=== PATIENT | female | born 1935 | race Caucasian/White ===

== ENCOUNTER 2016-04-15 18:22 | Inpatient (IN) ==
[2016-04-15] MEDS ORDERED: FUROSEMIDE 40 MG/4 ML VIAL IV ONE ×2 (18:31→19:47)
--- NOTE | 2016-04-15 19:36 | Internal Med History&Physical ---
Medical - H&P: HPI Patient information: Note initiated : 04/15/16 at 7:33 pm Service Date, if different from initiated Date: [] Patient: Kenia Davis a 80 y/o F admitted on 04/15/16 for severe anemia. Chief Complaint: [] History of present illness: Ms. Davis is a 80 year old female who is a patient of Dr Shanks, follows with Dr mendez for recurrent Upper GI bleed. The patient has not been feeling well for approximately 4 weeks, she has been progressively getting short of breath over this time, and likely gaining weight. She was seen by Dr Shanks in his clinic yesterday. The note is not in yet, but what I gather by talking with the patient and Dr shanks, the patient worsening condition was concerning and therefore Dr Shanks ordered workup, cxr and labs. The patients CXR showed moderate CHF and the patients hb was 6.2. The patient was advised to go to the ER for blood transfusion? vs further management. The patient was seen in the ER and its seems that the ER was under the impression that she needs blood transfusion, they ordered 3 units of blood for the patient and the plan was to discharge her back home and follow up with her PCP. I received a Call today, in the evening from Dr Shanks who was concerned with regards to the plan of care and wanted me to evaluate the patient and initiate treatment/ GI evaluation for blood loss The patient has h/o Angiodysplasia and GAstritis likely from NSAID use (as per GI consult notes) Her last EGD was in 11/09 which showed erosive gastritis, (pt placed on misopristol) and colonoscopy was on 10/09 which revealed cecal angiodysplasia, s/p ablation. The patient also underwent a capsule enterscopy which was unrevealing. The patient has had multipe scopies for GI bleed and has been on IV iron therapy with oral iron therapy. As per the last GI note on 04/11/16, the patient is stable with Hb of 10 ( i did not see the lab result). The patient reported that her fatigue and sob was getting worse, but could nto give a specific time line to me. The patient has chronically black stools due to her iron use, she did not mention any bright red blood per rectum or abdominal pain. The patients PMH is also significant for Afib for which she is on coumadin with therapeutic INR complicating her GI bleed issues. Plus there is suspicion of use of NSAIDS by the GI team. Given her severe anemia, Shortness of breath, chf on xray and on clinical eval today patient was admitted to telemetery for observation. GI consult placed for oncall physician Dr Peraza. - Constitutional Constitutional: Present: weakness. Absent: chills, fever(s), headache(s) - EENT Eyes: Absent: blurry vision, change in vision Nose, mouth and throat: Absent: disequilibrium, dizziness - Cardiovascular Cardiovascular: Present: dyspnea on exertion, edema. Absent: chest pain, lightheadedness - Respiratory Respiratory: Present: wheezing. Absent: cough, dyspnea on exertion, excessive phlegm production - Gastrointestinal Gastrointestinal: Present: melena. Absent: abdominal pain, hematemesis, hematochezia, loose stools, nausea, vomiting - Genitourinary Genitourinary: Absent: hematuria, urinary frequency, urinary hesitancy - Musculoskeletal Musculoskeletal: Absent: arthralgias - Integumentary Integumentary: Absent: wounds, jaundice - Neurological Neurological: Absent: disequilibrium, focal weakness, syncope, vertigo - Psychiatric Psychiatric: Absent: anxiety, confusion - Endocrine Endocrine: Absent: polydipsia, polyphagia, polyuria - Hematologic/Lymphatic Hematologic/Lymphatic: Present: easy bleeding, easy bruising - Allergic/Immunologic Allergic/Immunologic: Absent: uticaria, wheezing Medical - H&P: PMH Medical history: Medical History Acute cor pulmonale (Acute) Anemia (Acute) Advanced diabetic maculopathy (Chronic) Anemia (Chronic) Angiodysplasia (Chronic) Ankle sprain (Chronic 11/08/12) Aortic valve stenosis (Chronic) Bronchitis (Chronic) CKD (chronic kidney disease) stage 3, GFR 30-59 ml/min (Chronic) Chronic atrial fibrillation (Chronic) Chronic kidney disease (Chronic) Chronic kidney disease, stage III (moderate) (Chronic) Colon adenoma (Chronic) Congestive heart failure (Chronic) Degenerative joint disease of right knee (Chronic) Dermatochalasis (Chronic) Dysphagia (Chronic) Edema (Chronic) Edema of lower extremity (Chronic) Encounter for wound care (Chronic) Fatigue (Chronic 03/21/12) Gastritis (Chronic) Gout (Chronic) H/O noncompliance with medical treatment, presenting hazards to health (Chronic) Hyperlipidemia (Chronic) Hypertension (Chronic) Hypothyroidism (Chronic) Iridocyclitis (Chronic) skilled nursing current use of anticoagulant (Chronic 04/11/13) Lower extremity edema (Chronic) Lupus (systemic lupus erythematosus) (Chronic) Metabolic syndrome (Chronic) Mitral valve insufficiency (Chronic) Morbid obesity (Chronic) Obstructive sleep apnea (Chronic) Osteoarthrosis, localized, primary, involving lower leg (Chronic) Osteoporosis (Chronic) 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 pylori) infection (Resolved) Infected abrasion of left leg (Resolved) Rectal Hemorrhage (Resolved) Surgical history: Past Surgical History History of breast surgery (Resolved) History of cataract surgery (Resolved) History of cholecystectomy (Resolved) History of colonoscopy (Resolved) History of esophagogastroduodenoscopy (Resolved) History of hysterectomy (Resolved) History of left knee replacement (Resolved) History of shoulder surgery (Resolved) History of toe surgery (Resolved) Pseudophakia (Resolved) Status post right knee replacement (Resolved) Family history: reviewed and not pertinent Pertinent family history: no h/o gi bleed no h/o pulmonary htn in family Social history: lives with spouse non smoker, ex smoker no etoh no recreational drugs. Medical - H&P: Meds Home Medications Medication Instructions Recorded Confirmed Type Vitamin B Complex 1 cap PO HS 09/24/14 04/15/16 History ferrous sulfate ER 325 mg (65 mg 325 mg PO BID cap 02/13/15 04/15/16 History iron) capsule,extended release sennosides 8.6 mg tablet 8.6 mg PO QDAY 08/07/15 04/15/16 History misoprostol 100 mcg tablet 100 mcg PO BID tab 12/18/15 04/15/16 History ascorbic acid (vitamin C) 500 mg 500 mg PO DAILY tab 12/29/15 04/15/16 History tablet magnesium oxide 400 mg capsule 400 mg PO BID cap 12/29/15 04/15/16 History Allergies Allergy/AdvReac Type Severity Reaction Status Date / Time quinidine Allergy Intermediate Palpitation Verified 04/14/16 14:48 s hydrocodone AdvReac Mild Itching Verified 04/14/16 14:48 Medical - H&P: Exam - Constitutional Vitals: Temp Pulse Resp BP Pulse Ox 98.2 F 67 26 H 115/68 95 04/15/16 19:00 04/15/16 19:00 04/15/16 19:00 04/15/16 19:00 04/15/16 19:00 General appearance: average body habitus, moderate distress, morbidly obese - Head Head exam: Present: atraumatic, normal inspection, normocephalic - Eye Eye exam: Present: PERRL. Absent: periorbital swelling, periorbital tenderness , scleral icterus - ENT ENT exam: Present: mucous membranes moist, normal external ear exam - Neck Neck exam: Present: normal inspection - Expanded Neck Exam Neck exam: Absent: tracheal deviation - Respiratory Additional comments: air entry equal on both sides bibasilar crackles jose luis prolonged exp sounds, jose luis wheezing noted. - Cardiovascular Cardiovascular exam: Present: irregular rhythm, +S1, +S2, +S4, systolic murmur ( aortic region) - GI/Abdominal GI/Abdominal exam: Present: normal bowel sounds, soft - Extremities Exam Extremities exam: Present: pedal edema Additional comments: edema on all dependent region upto pelvis. - Neurological Exam Neurological exam: Present: alert, CN II-XII intact, oriented X3. Absent: motor sensory deficit - Psychiatric Psychiatric exam: Absent: agitated, anxious - Skin Skin exam: Present: intact. Absent: rash, urticaria Medical - H&P: Reslt - Labs Labs: Hb reviewed echo done in past, colonoscopy egd x ray chest reviwed. Medical - H&P: A/P (1) Acute cor pulmonale Current visit: No Status: Acute (2) Anemia Current visit: No Status: Acute (3) Angiodysplasia Problem details: 08/07/2012 Tony 09/25/2015 Tony Current visit: No Status: Chronic (4) Atrial fibrillation Current visit: No Status: Chronic (5) Chronic kidney disease, stage III (moderate) Current visit: No Status: Chronic (6) Congestive heart failure Current visit: No Status: Chronic (7) Obstructive sleep apnea Current visit: No Status: Chronic (8) Type 2 diabetes mellitus Current visit: No Status: Chronic (9) Moderate to severe pulmonary hypertension Current visit: Yes Status: Acute - Narrative A/P Narrative: This is a very complex 80 yr female, who is unfortunately having GI bleed due to angiodysplasia as well as has Afib with high risk of stroke. The patient also has congestive heart failure, with acute cor pulmonale as the predominant type (right side heart failure). The patient also has severe pulmoanry hypertension. Acute blood loss anemia- Transfused 3 units of blood by the ER, check cbc again. GI bleed- Due to angiodysplsia vs Gastritis for now, As per the last GI plan, patient needs EGD with push enteroscopy. I have consulted GI for further evaluation, IV bid ppi for now, continue misoprisotol CHF- noted on X ray, appears biventricular on x ray, hwoever she has predominant right sided heart failure, due to severe pulmonary hypertension. IV lasix for now and monitor closely, Al to be placed. strickt I/O monitoring, on tele. pt does not endorse chest pains. Pulmonary hypertension- Multifactorial, likely combination fo type 2 and type 3 pulmonary HTN. Her PUlmn HTN is ssevere and she is significantly volume overloaded as per the last echo done mid last year, SHe will need significant diuresis, as much as her kidneys allow. She has beeb non compliant with her ODN which can also exacerbate her pulmonary HTN. ATrial fibrillation- HR controlled with digoxin, the patient has not had a stroke, but has had significant recurrent GI bleed, at thsi time she is at risk of significnat GI bleed as well as stroke, Based on the available evidence / her CADSVASC score shows her to have a 9.7% chance of having a CVA. However her HASBLED score shows her a 8.9% chance of major bleed, and the Hemorrhage score shows her having a 12.3% chance of major bleed. The patient seems to be in a tough spot, but based on these calculators the patients risk profile seems to be similar without or with Coumadin. The patient may benefit by talking with her medical laboratory technicians on alternative agents for her stroke. She may be a candidate for left atrial appendage occlusion device. Code status - Full code Diet- Cardiac- Diabetic diet
[2016-04-15] MEDS ORDERED: ONDANSETRON 4 MG/2 ML VIAL IV PRN (19:47)
[2016-04-15] MEDS ORDERED: DEXTROSE 50% 50 ML VIAL IV PRN (19:47)
[2016-04-15] MEDS ORDERED: ACETAMINOPHEN 325 MG TABLET PO PRN (19:47)
[2016-04-15] MEDS ORDERED: NALOXONE HCL 0.4 MG/ML VIAL IV PRN (19:47)
[2016-04-15 21:13] LABS: Basophils # (Auto) 0 K/mcL (0.0-0.3); Basophils % (Auto) 0.3 % (0.0-2.0); Eosinophils # (Auto) 0.4 K/mcL (0.0-0.7); Eosinophils % (Auto) 5.3 % (0.0-7.0); Granulocytes % (Auto) 83.8 % (38.0-78.0); Lymphocytes # (Auto) 0.4 K/mcL (1.5-4.8); Lymphocytes % (Auto) 4.8 % (15.5-49.0); Mean Corpuscular HGB Conc 31.7 g/dL (31.0-36.0); Mean Corpuscular Hemoglobin 28.2 pg (26.0-34.0); Monocytes # (Auto) 0.5 K/mcL (0.1-0.9); Monocytes % (Auto) 5.8 % (1.0-9.0); Platelet Count 221 K/mcL (140-440); RBC 2.82 M/mcL (4.00-5.20); Red Cell Distribution Width 21.2 % (11.5-14.5)
[2016-04-15 21:55] LABS: ALT/SGPT 23 U/l (0-40); Albumin 3.9 gm/dL (3.2-5.2); Albumin/Globulin Ratio 1.4 (1.0-2.3); Alkaline Phosphatase 94 U/L (39-117); Bilirubin,Direct 0.2 mg/dL (0.0-0.3); Blood Urea Nitrogen 63 mg/dl (8-23); Gamma Glutamyl Transpeptidase 52 U/L (5-36); Magnesium 2.9 mg/dL (1.6-2.5); Phosphorous 4.2 mg/dL (2.7-4.5); Uric Acid 5.2 mg/dL (2.5-8.0)
[2016-04-15] MEDS: MAGNESIUM OXIDE 400 MG TABLET PO SCH (22:42)
[2016-04-15] MEDS: SIMVASTATIN 20 MG TABLET PO SCH (22:42)
[2016-04-15] MEDS: INSULIN LISPRO 1 UNIT/0.01 ML UNIT SQ SCH (22:42)
[2016-04-15] MEDS: PANTOPRAZOLE 40 MG VIAL IV SCH (22:42)
[2016-04-15] MEDS: INSULIN GLARGINE, HUMAN 1 UNIT/0.01 ML SQ SCH (22:43)
[2016-04-15] MEDS ORDERED: PANTOPRAZOLE 40 MG VIAL IV ONE (22:45)
[2016-04-16] MEDS: IPRATROPIUM/ALBUTEROL 3 ML AMPUL.NEB NEB SCH ×4 (00:19→20:16)
[2016-04-16] MEDS ORDERED: FUROSEMIDE 40 MG/4 ML VIAL IV ONE (01:00)
[2016-04-16 01:10] LABS: Appearance,Urine CLEAR; Bacteria,Urine 0 /hpf (0); Bilirubin,Urine NEG (NEG); Color,Urine STRAW; Glucose,Urine (UA) NEGATIVE (NEG); Leukocyte Esterase,Urine NEG /uL (NEG); Mucus,Urine FEW /hpf (0); Nitrate,Urine NEG (NEG); Protein,Urine NEG (NEG); Specific Gravity,Urine 1.009 (1.000-1.035); Urine Blood NEG mg/dL (<0.03); Urine Hyaline Cast 1 /lpf (0-2); Urine RBC < 1 /hpf (0-1); Urine Squamous Epithelial Cell 0 /hpf (0-4); Urine WBC 1 /hpf (0-4); Urobilinogen,Urine NEG (NEG)
--- NOTE | 2016-04-16 07:27 | XRay Report ---
CLINICAL INFORMATION: CHF COMPARISON: 04/14/2016 FINDINGS: The heart is markedly enlarged - unchanged. Mediastinum is unremarkable. Pulmonary vessels have increased in caliber and now markedly congested. There is marked bronchovascular edema which has also worsened. There is mild left basilar airspace disease - likely atelectasis. Small bilateral pleural effusions noted IMPRESSION: Severe CHF - worsening. Interpreted and Authenticated by: Ray Virk 04/16/16
[2016-04-16] MEDS: LEVOTHYROXINE 150 MCG TABLET PO SCH (07:30)
[2016-04-16] MEDS: PANTOPRAZOLE 40 MG VIAL IV SCH ×2 (07:30→18:06)
[2016-04-16] MEDS: INSULIN LISPRO 1 UNIT/0.01 ML UNIT SQ SCH ×5 (07:53→21:35)
[2016-04-16] MEDS: FUROSEMIDE 40 MG/4 ML VIAL IV SCH ×2 (07:57→18:41)
[2016-04-16] MEDS: MISOPROSTOL 100 MCG TABLET PO SCH ×2 (08:00→18:12)
[2016-04-16] MEDS: POTASSIUM CHLORIDE 20 MEQ/15 ML ML PO SCH ×2 (08:13→18:14)
[2016-04-16] MEDS: ALLOPURINOL 300 MG TABLET PO SCH (08:13)
[2016-04-16] MEDS: MAGNESIUM OXIDE 400 MG TABLET PO SCH ×2 (08:13→21:36)
[2016-04-16] MEDS: LEVOTHYROXINE 100 MCG TABLET PO SCH (08:43)
[2016-04-16 08:49] LABS: Basophils # (Auto) 0 K/mcL (0.0-0.3); Basophils % (Auto) 0.2 % (0.0-2.0); Eosinophils # (Auto) 0.4 K/mcL (0.0-0.7); Eosinophils % (Auto) 4.9 % (0.0-7.0); Granulocytes % (Auto) 82.5 % (38.0-78.0); Lymphocytes # (Auto) 0.4 K/mcL (1.5-4.8); Lymphocytes % (Auto) 4.7 % (15.5-49.0); Mean Cell Volume 88.8 fL (80.0-100.0); Mean Corpuscular HGB Conc 31.2 g/dL (31.0-36.0); Mean Corpuscular Hemoglobin 27.7 pg (26.0-34.0); Monocytes # (Auto) 0.6 K/mcL (0.1-0.9); Monocytes % (Auto) 7.7 % (1.0-9.0); Platelet Count 205 K/mcL (140-440); RBC 2.86 M/mcL (4.00-5.20); Red Cell Distribution Width 21.3 % (11.5-14.5)
[2016-04-16 09:06] LABS: ALT/SGPT 20 U/l (0-40); Albumin/Globulin Ratio 1.5 (1.0-2.3); Alkaline Phosphatase 92 U/L (39-117); Bilirubin,Direct < 0.2 mg/dL (0.0-0.3); Blood Urea Nitrogen 63 mg/dl (8-23); Gamma Glutamyl Transpeptidase 51 U/L (5-36); Magnesium 2.8 mg/dL (1.6-2.5); Phosphorous 4.2 mg/dL (2.7-4.5); Uric Acid 5.5 mg/dL (2.5-8.0)
[2016-04-16] MEDS ORDERED: 0.9 % SODIUM CHLORIDE 250 ML IV SCH (12:00)
--- NOTE | 2016-04-16 12:30 | Internal Med Progress Note ---
Medical - PN: Subj Patient information: Note initiated : 04/16/16 at 12:22 pm Service Date, if different from initiated Date: [] Patient: Kenia Davis 80 y/o F admitted on 04/15/16 for severe anemia. Chief Complaint: [] Interval history: The patient seen examined, by the bed side The patient slept ok, has no acute concerns, denies any new complaints breathing is much better, she has a rasheed with adequate drainage. The patients hb reviewed, it is an inappropriate rise, Hb is only 7.9 after 3 units of blood. Will transfuse 1 additional unit today to keep h/h > 8 given h/ o heart failure and active diuresis. NPO this AM for GI eval and endoscopy which will happen likely around 3.30 Pertinent ROS: Denies headache, dizziness Denies chest pain, palpitations Denies cough or shortness of breath Denies abdominal pain, nausea or vomiting. - Constitutional Vitals: Vital Signs Temp Pulse Resp BP Pulse Ox 97.0 F L 58 L 16 112/64 91 04/16/16 10:57 04/16/16 07:58 04/16/16 10:57 04/16/16 10:57 04/16/16 10:57 Period Temp Pulse Resp BP Sys/Shepard Pulse Ox Last 24 Hr 97.0 F-98.2 F 58-71 16-26 96-128/46-68 91-100 Intake and Output 04/15/16 04/16/16 04/16/16 21:59 05:59 13:59 Intake Total 350 / 350 620 / 620 Output Total 501 / 501 1300 / 1300 650 / 650 Balance -501 / -501 -950 / -950 -30 / -30 Weight 268 lb Intake & Output: Intake & Output 04/15/16 04/16/16 04/16/16 21:59 05:59 13:59 Intake Total 350 / 350 620 / 620 Output Total 501 / 501 1300 / 1300 650 / 650 Balance -501 / -501 -950 / -950 -30 / -30 Weight 268 lb Intake: Oral 350 / 350 620 / 620 Output: Urine Catheter Amount 1300 / 1300 650 / 650 Void Amount 500 / 500 # of times incontinent of 1 / 1 urine Other: Meal HS snack Breakfast Percent of Meal Consumed 100% 100% Feeding Ability Assist with Tray Set Up Assist with Tray Set Up # Voids 1 # Bowel Movements 1 Exam: Constitutional; Afebrile, cooperative, alert, not in distress. Eyes- No icterus, Pupils equal, reactive, No periorbital swelling Ears- Ext ear normal, hearing normal to conversation. Neck- Midline trachea, supple Respiratory system: Air Entry equal on both sides,, mild exp wheezing, CVS- Rate rhythm regular, S1,S2 heard, no gallop, no rub. Abdomen- Soft nontender abdomen, no organomegaly, no tenderness, no guarding or rigidity, NURSING HOME ADMISSIONS DIRECTOR- AOOx3, moving all extremities, no focal deficit noted. Medical - PN: Obj Da - Labs CBC & Chem 7: 04/16/16 07:53 04/16/16 07:53 Labs: Abnormal Lab Results 04/16/16 04/16/16 04/15/16 07:53 07:53 20:35 RBC 2.86 L Hgb 7.9 L Hct 25.4 L RDW 21.3 H MPV Gran % 82.5 H Lymph % (Auto) 4.7 L Lymph # 0.4 L PT INR Carbon Dioxide 32 H BUN 63 H Creatinine 1.7 H Glucose 126 H Magnesium 2.8 H GGT 51 H NT-Pro-B Natriuret Pep 624.0 H 04/15/16 04/15/16 04/15/16 20:35 20:35 20:35 RBC 2.82 L Hgb 7.9 L Hct 25.1 L RDW 21.2 H MPV 7.3 L Gran % 83.8 H Lymph % (Auto) 4.8 L Lymph # 0.4 L PT 29.9 H INR 2.7 H Carbon Dioxide BUN 63 H Creatinine 1.6 H Glucose 157 H Magnesium 2.9 H GGT 52 H NT-Pro-B Natriuret Pep Meds: Medications Acetaminophen (Tylenol) 650 mg PO Q6HP PRN PRN Reason: PAIN/FEVER > 101 Albuterol/Ipratropium (Duoneb) 3 ml NEB Q6HRT ON LICENSE OF [facility] Last Admin: 04/16/16 07:56 Dose: 3 ml Allopurinol (Zylopriim) 300 mg PO DAILY ON LICENSE OF [facility] Last Admin: 04/16/16 08:13 Dose: 300 mg Dextrose (Dextrose 50%) 0 ml IV UD PRN PRN Reason: Hypoglycemia Diagnostic Test (Pha) (Accu-Chek) 1 each FS ACHS ON LICENSE OF [facility] Last Admin: 04/16/16 07:50 Dose: 1 each Digoxin (Lanoxin) 62.5 mcg PO DAILY@1400 [place] Furosemide (Lasix) 40 mg IV BIDD ON LICENSE OF [facility] Last Admin: 04/16/16 07:57 Dose: 40 mg Sodium Chloride (Sodium Chloride 0.9%) 250 mls @ 20 mls/hr IV .[id number] ON LICENSE OF [facility] Stop: 04/17/16 00:29 Insulin Glargine (Lantus) 40 unit SQ HS ON LICENSE OF [facility] Last Admin: 04/15/16 22:43 Dose: 40 unit Insulin Human Lispro (Humalog) 0 unit SQ [facility] PRN Reason: Protocol Last Admin: 04/16/16 07:53 Dose: 2 unit Levothyroxine Sodium (Synthroid) 100 mcg PO ACB ON LICENSE OF [facility] Last Admin: 04/16/16 08:43 Dose: 100 mcg Levothyroxine Sodium (Synthroid) 150 mcg PO QAMAC ON LICENSE OF [facility] Last Admin: 04/16/16 07:30 Dose: 150 mcg Magnesium Oxide (Magnesium Oxide) 400 mg PO BID ON LICENSE OF [facility] Last Admin: 04/16/16 08:13 Dose: 400 mg Misoprostol (Cytotec) 100 mcg PO BIDCC ON LICENSE OF [facility] Last Admin: 04/16/16 08:00 Dose: 100 mcg Naloxone HCl (Narcan) 0.1 mg IV Q2MIN PRN PRN Reason: Opiate Reversal Ondansetron HCl (Zofran) 4 mg IV Q4HP PRN PRN Reason: Nausea And Vomiting Pantoprazole Sodium (Protonix) 40 mg IV BIDAC ON LICENSE OF [facility] Last Admin: 04/16/16 07:30 Dose: 40 mg Potassium Chloride (Potassium Chloride) 15 meq PO BIDCC ON LICENSE OF [facility] Last Admin: 04/16/16 08:13 Dose: 15 meq Simvastatin (Zocor) 20 mg PO HS ON LICENSE OF [facility] Last Admin: 04/15/16 22:42 Dose: 20 mg Medical - PN: A/P - Time Spent With Patient Total time spent is greater than 50% in coordination of care (as documented) at patient's floor/unit and/or counseling patient: (1) Acute cor pulmonale Status: Acute Current Visit: No (2) Anemia Status: Acute Current Visit: No (3) Angiodysplasia Problem details: 08/07/2012 Tony 09/25/2015 Tony Status: Chronic Current Visit: No (4) Atrial fibrillation Status: Chronic Current Visit: No (5) Chronic kidney disease, stage III (moderate) Status: Chronic Current Visit: No (6) Congestive heart failure Status: Chronic Current Visit: No (7) Obstructive sleep apnea Status: Chronic Current Visit: No (8) Type 2 diabetes mellitus Status: Chronic Current Visit: No (9) Moderate to severe pulmonary hypertension Status: Acute Current Visit: Yes - Narrative A/P Narrative: Anemia_ Await EGD, transfuse 1 more unit. CHF/ Acute Cor pulmonale- IV lasix bid, replace electrolytes, as needed, continue to monitor I/O Afib, INR therapeutic, will hold coumadin for now, given no overt GI bleed, no need to reverse the anticoagulation. I discussed with the patient need for discussion with her ecommerce manager regarding alternative treatment options for afib/ CVA reduction if possible DVT - INR therapeutic Diet NPO for now, otherwise diabetic diet. CKD creat is 1.7, which is around baseline, monitor daily
[2016-04-16] MEDS ORDERED: PROPOFOL 200 MG/20 ML VIAL IV SCH (13:00)
[2016-04-16] MEDS ORDERED: MIDAZOLAM 2 MG/2 ML VIAL IV SCH (13:00)
[2016-04-16] MEDS ORDERED: PROPOFOL 20 ML IV ONE (15:28)
[2016-04-16] MEDS: DIGOXIN 125 MCG TABLET PO SCH (17:10)
[2016-04-16] MEDS: INSULIN GLARGINE, HUMAN 1 UNIT/0.01 ML SQ SCH (21:35)
[2016-04-16] MEDS: SIMVASTATIN 20 MG TABLET PO SCH (21:36)
[2016-04-17] MEDS: IPRATROPIUM/ALBUTEROL 3 ML AMPUL.NEB NEB SCH ×4 (00:23→19:18)
[2016-04-17 05:05] LABS: Basophils # (Auto) 0 K/mcL (0.0-0.3); Basophils % (Auto) 0.2 % (0.0-2.0); Eosinophils # (Auto) 0.3 K/mcL (0.0-0.7); Eosinophils % (Auto) 4.5 % (0.0-7.0); Granulocytes % (Auto) 83.3 % (38.0-78.0); Lymphocytes # (Auto) 0.3 K/mcL (1.5-4.8); Lymphocytes % (Auto) 4.8 % (15.5-49.0); Mean Corpuscular HGB Conc 31.7 g/dL (31.0-36.0); Mean Corpuscular Hemoglobin 28.2 pg (26.0-34.0); Monocytes # (Auto) 0.5 K/mcL (0.1-0.9); Monocytes % (Auto) 7.2 % (1.0-9.0); Platelet Count 181 K/mcL (140-440); RBC 2.87 M/mcL (4.00-5.20); Red Cell Distribution Width 20.3 % (11.5-14.5)
[2016-04-17 05:21] LABS: ALT/SGPT 18 U/l (0-40); Albumin 3.5 gm/dL (3.2-5.2); Albumin/Globulin Ratio 1.2 (1.0-2.3); Alkaline Phosphatase 88 U/L (39-117); Bilirubin,Direct < 0.2 mg/dL (0.0-0.3); Blood Urea Nitrogen 62 mg/dl (8-23); Gamma Glutamyl Transpeptidase 47 U/L (5-36); Magnesium 2.6 mg/dL (1.6-2.5); Phosphorous 4.6 mg/dL (2.7-4.5); Uric Acid 5.7 mg/dL (2.5-8.0)
[2016-04-17] MEDS: INSULIN LISPRO 1 UNIT/0.01 ML UNIT SQ SCH ×4 (09:16→21:47)
[2016-04-17] MEDS: POTASSIUM CHLORIDE 20 MEQ/15 ML ML PO SCH ×2 (09:16→17:46)
[2016-04-17] MEDS: PANTOPRAZOLE 40 MG VIAL IV SCH ×2 (09:17→18:01)
[2016-04-17] MEDS: FUROSEMIDE 40 MG/4 ML VIAL IV SCH ×2 (09:17→16:43)
[2016-04-17] MEDS: LEVOTHYROXINE 150 MCG TABLET PO SCH (09:18)
[2016-04-17] MEDS: MISOPROSTOL 100 MCG TABLET PO SCH ×2 (09:18→17:44)
[2016-04-17] MEDS: MAGNESIUM OXIDE 400 MG TABLET PO SCH ×2 (09:19→21:46)
[2016-04-17] MEDS: LEVOTHYROXINE 100 MCG TABLET PO SCH (09:19)
[2016-04-17] MEDS: ALLOPURINOL 300 MG TABLET PO SCH (09:20)
[2016-04-17] MEDS ORDERED: PHYTONADIONE 5 MG TABLET PO ONE (11:49)
--- NOTE | 2016-04-17 11:50 | Internal Med Progress Note ---
Medical - PN: Subj Patient information: Note initiated : 04/17/16 at 11:47 am Service Date, if different from initiated Date: [] Patient: Kenia Davis 80 y/o F admitted on 04/15/16 for severe anemia. Chief Complaint: [] Interval history: The patient seen examined this AM, Sitting comfortably in her bed She is s/p EGD scopy yesterday, few Angiodysplasia noted in the stomach. The patient received 1 additional unit of blood her Hb this AM Was 8.1, and then 8.0. The patient does not report any significant bleeding per recturm, no new concerns. She is otherwise doing well, with at bedside. Pertinent ROS: Denies headache, dizziness Denies chest pain, palpitations Denies cough or shortness of breath Denies abdominal pain, nausea or vomiting. - Constitutional Vitals: Vital Signs Temp Pulse Resp BP Pulse Ox 98.8 F 64 16 109/53 97 04/17/16 04:11 04/17/16 07:44 04/17/16 07:44 04/17/16 04:11 04/17/16 07:44 Period Temp Pulse Resp BP Sys/Shepard Pulse Ox Last 24 Hr 97.8 F-98.8 F 56-75 16-20 94-122/49-63 91-97 Intake and Output 04/16/16 04/17/16 04/17/16 21:59 05:59 13:59 Intake Total 360 / 360 550 / 550 Output Total 1850 / 1850 1650 / 1650 Balance -1490 / -1490 -1100 / -1100 Weight 261 lb Intake & Output: Intake & Output 04/16/16 04/17/16 04/17/16 21:59 05:59 13:59 Intake Total 360 / 360 550 / 550 Output Total 1850 / 1850 1650 / 1650 Balance -1490 / -1490 -1100 / -1100 Weight 261 lb Intake: Oral 360 / 360 550 / 550 Output: Urine Catheter Amount 1850 / 1850 1650 / 1650 Other: Meal Dinner HS snack Percent of Meal Consumed 100% 100% Feeding Ability Assist with Tray Set Up # Bowel Movements 0 Exam: Constitutional; Afebrile, cooperative, alert, not in distress. Morbid obesity Eyes- No icterus, Pupils equal, reactive, No periorbital swelling Ears- Ext ear normal, hearing normal to conversation. Neck- Midline trachea, supple Respiratory system: Air Entry equal on both sides, No crackles or wheezing, no rhonchi. CVS- irreuglarily irreuglar rate, S1,S2 heard, no gallop, no rub. jose luis edema, venous statis Abdomen- Soft nontender abdomen, no organomegaly, no tenderness, no guarding or rigidity, DIRECTOR OF LABOR RELATIONS- AOOx3, moving all extremities, no focal deficit noted. Medical - PN: Obj Da - Labs CBC & Chem 7: 04/17/16 08:20 04/17/16 03:50 Labs: Abnormal Lab Results 04/17/16 04/17/16 04/17/16 08:20 08:20 03:50 RBC Hgb 8.0 L Hct 26.1 L RDW MPV Gran % Lymph % (Auto) Lymph # PT 28.6 H INR 2.6 H Chloride 95 L Carbon Dioxide 31 H BUN 62 H Creatinine 1.8 H Glucose 167 H Phosphorus 4.6 H Magnesium 2.6 H GGT 47 H NT-Pro-B Natriuret Pep 04/17/16 04/16/16 04/16/16 03:50 20:32 07:53 RBC 2.87 L Hgb 8.1 L 8.6 L Hct 25.6 L 27.1 L RDW 20.3 H MPV Gran % 83.3 H Lymph % (Auto) 4.8 L Lymph # 0.3 L PT INR Chloride Carbon Dioxide 32 H BUN 63 H Creatinine 1.7 H Glucose 126 H Phosphorus Magnesium 2.8 H GGT 51 H NT-Pro-B Natriuret Pep 04/16/16 04/15/16 04/15/16 07:53 20:35 20:35 RBC 2.86 L Hgb 7.9 L Hct 25.4 L RDW 21.3 H MPV Gran % 82.5 H Lymph % (Auto) 4.7 L Lymph # 0.4 L PT 29.9 H INR 2.7 H Chloride Carbon Dioxide BUN Creatinine Glucose Phosphorus Magnesium GGT NT-Pro-B Natriuret Pep 624.0 H 04/15/16 04/15/16 20:35 20:35 RBC 2.82 L Hgb 7.9 L Hct 25.1 L RDW 21.2 H MPV 7.3 L Gran % 83.8 H Lymph % (Auto) 4.8 L Lymph # 0.4 L PT INR Chloride Carbon Dioxide BUN 63 H Creatinine 1.6 H Glucose 157 H Phosphorus Magnesium 2.9 H GGT 52 H NT-Pro-B Natriuret Pep Meds: Medications Acetaminophen (Tylenol) 650 mg PO Q6HP PRN PRN Reason: PAIN/FEVER > 101 Albuterol/Ipratropium (Duoneb) 3 ml NEB Q6HRT [facility] Last Admin: 04/17/16 07:36 Dose: 3 ml Allopurinol (Zylopriim) 300 mg PO DAILY [facility] Last Admin: 04/17/16 09:20 Dose: 300 mg Dextrose (Dextrose 50%) 0 ml IV UD PRN PRN Reason: Hypoglycemia Diagnostic Test (Pha) (Accu-Chek) 1 each FS ACHS [facility] Last Admin: 04/17/16 11:46 Dose: 1 each Digoxin (Lanoxin) 62.5 mcg PO DAILY@1400 [facility] Last Admin: 04/16/16 17:10 Dose: 62.5 mcg Furosemide (Lasix) 40 mg IV BIDD [facility] Last Admin: 04/17/16 09:17 Dose: 40 mg Insulin Glargine (Lantus) 40 unit SQ HS [facility] Last Admin: 04/16/16 21:35 Dose: 40 unit Insulin Human Lispro (Humalog) 0 unit SQ [facility] PRN Reason: Protocol Last Admin: 04/17/16 11:47 Dose: 6 unit Levothyroxine Sodium (Synthroid) 100 mcg PO ACB [facility] Last Admin: 04/17/16 09:19 Dose: 100 mcg Levothyroxine Sodium (Synthroid) 150 mcg PO QAMAC [facility] Last Admin: 04/17/16 09:18 Dose: 150 mcg Magnesium Oxide (Magnesium Oxide) 400 mg PO BID [facility] Last Admin: 04/17/16 09:19 Dose: 400 mg Misoprostol (Cytotec) 100 mcg PO BIDCC [facility] Last Admin: 04/17/16 09:18 Dose: 100 mcg Naloxone HCl (Narcan) 0.1 mg IV Q2MIN PRN PRN Reason: Opiate Reversal Ondansetron HCl (Zofran) 4 mg IV Q4HP PRN PRN Reason: Nausea And Vomiting Pantoprazole Sodium (Protonix) 40 mg IV BIDAC [facility] Last Admin: 04/17/16 09:17 Dose: 40 mg Potassium Chloride (Potassium Chloride) 15 meq PO BIDCC [facility] Last Admin: 04/17/16 09:16 Dose: 15 meq Simvastatin (Zocor) 20 mg PO HS [facility] Last Admin: 04/16/16 21:36 Dose: 20 mg Medical - PN: A/P - Time Spent With Patient Total time spent is greater than 50% in coordination of care (as documented) at patient's floor/unit and/or counseling patient: (1) Acute cor pulmonale Status: Acute Current Visit: No (2) Anemia Status: Acute Current Visit: No (3) Angiodysplasia Problem details: 08/07/2012 Tony 09/25/2015 Tony Status: Chronic Current Visit: No (4) Atrial fibrillation Status: Chronic Current Visit: No (5) Chronic kidney disease, stage III (moderate) Status: Chronic Current Visit: No (6) Congestive heart failure Status: Chronic Current Visit: No (7) Type 2 diabetes mellitus Status: Chronic Current Visit: No (8) Moderate to severe pulmonary hypertension Status: Acute Current Visit: Yes - Narrative A/P Narrative: The patient is doing well, no acute bleed, but her hemoglobin is still on the low end, she came in with 6.2, and after 4 units she is only at 8.0, no active bleed noted, she is s/p EGD scopy GI bleed: Due to angiodysplasia, GI consult not in yet, but I reviewed the EGD paper report, where in he mentions that patient will need push enteroscopy as outpatient. If patient however continues to bleed or Hb not improve, will see if we need to transfer the patient to [facility] for EGD with push enteroscopy and ablation of lesion. Anemia: Monitor h/h transfuse to keep hb > 8.0. on IV ppi, and misopristol Atrial Fib: On Coumadin with therapeutic INR, the patient is in a difficult position, but given that her hb has not responded as well to just transfusion, I will reverse her anticoagulation now to see if we can stop the bleed. I discussed with her the increased risks of stroke, but also increased risk of GI bleed. For now the plan is to hold Coumadin, give one dose of Vit K and monitor her bleed, ok to use low dose aspirin once INR is subtherapeutic. She can resume her Coumadin therapy as outpatient once her bleeding has stopped, and vessels have had time to heal. The patient again should talk with her c python developer regarding an evaluation for watchman device CHF/ Cor pulmonale: IV lasix for now, creat is 1.7, gradually trending up, she is neg 4 L at this time, he breathing is much better. Hold lasix if creatinie worsens. It seems she is fluid overloaded predominantly from right heart failure. Severe pulmonary HTN on the Echo, diuresis should help, she has type 2 and type 3 mixed picture. Compliace with cpap will help. DVT on coumadin with therapeutic INR. Diet Diabetic diet.
[2016-04-17] MEDS: DIGOXIN 125 MCG TABLET PO SCH (14:42)
[2016-04-17] MEDS: SIMVASTATIN 20 MG TABLET PO SCH (21:46)
[2016-04-17] MEDS: INSULIN GLARGINE, HUMAN 1 UNIT/0.01 ML SQ SCH (21:47)
[2016-04-18] MEDS: IPRATROPIUM/ALBUTEROL 3 ML AMPUL.NEB NEB SCH ×3 (00:17→13:52)
[2016-04-18 05:29] LABS: Basophils # (Auto) 0 K/mcL (0.0-0.3); Basophils % (Auto) 0.2 % (0.0-2.0); Eosinophils # (Auto) 0.3 K/mcL (0.0-0.7); Eosinophils % (Auto) 4.5 % (0.0-7.0); Granulocytes % (Auto) 84.1 % (38.0-78.0); Lymphocytes # (Auto) 0.3 K/mcL (1.5-4.8); Mean Cell Volume 89.5 fL (80.0-100.0); Mean Corpuscular HGB Conc 31.3 g/dL (31.0-36.0); Monocytes # (Auto) 0.5 K/mcL (0.1-0.9); Monocytes % (Auto) 7.2 % (1.0-9.0); Platelet Count 174 K/mcL (140-440); RBC 2.86 M/mcL (4.00-5.20); Red Cell Distribution Width 20.4 % (11.5-14.5)
[2016-04-18 06:07] LABS: ALT/SGPT 18 U/l (0-40); Albumin 3.6 gm/dL (3.2-5.2); Albumin/Globulin Ratio 1.3 (1.0-2.3); Alkaline Phosphatase 95 U/L (39-117); Bilirubin,Direct < 0.2 mg/dL (0.0-0.3); Blood Urea Nitrogen 64 mg/dl (8-23); Gamma Glutamyl Transpeptidase 49 U/L (5-36); Magnesium 2.7 mg/dL (1.6-2.5); Uric Acid 5.9 mg/dL (2.5-8.0)
[2016-04-18] MEDS: POTASSIUM CHLORIDE 20 MEQ/15 ML ML PO SCH (08:00)
[2016-04-18] MEDS: MISOPROSTOL 100 MCG TABLET PO SCH (08:01)
[2016-04-18] MEDS: LEVOTHYROXINE 150 MCG TABLET PO SCH (08:01)
[2016-04-18] MEDS: LEVOTHYROXINE 100 MCG TABLET PO SCH (08:02)
[2016-04-18] MEDS: PANTOPRAZOLE 40 MG VIAL IV SCH (08:02)
[2016-04-18] MEDS: FUROSEMIDE 40 MG/4 ML VIAL IV SCH (08:02)
[2016-04-18] MEDS: INSULIN LISPRO 1 UNIT/0.01 ML UNIT SQ SCH ×2 (08:02→12:01)
--- NOTE | 2016-04-18 09:09 | Operative Note ---
DATE OF OPERATION: 04/16/2016 PREPROCEDURE DIAGNOSIS: Upper GI bleed possibly secondary to angiodysplasia in jejunum. POSTPROCEDURE DIAGNOSES: 1. Gastrointestinal bleeding, source uncertain 2. Questionable angiodysplasia of stomach. PROCEDURE: Small bowel enteroscopy with ablation of lesion. INSTRUMENT USED: Olympus ROSA [id number] and Olympus ROSA CF H180AL colonoscope. SPECIMENS OBTAINED: None. INDICATIONS FOR PROCEDURE: The patient is a 80-year-old lady referred to me by Dr. Howard. The patient's primary care physician is Dr. Walls. Per verbal report, I believe the patient has seen STEVEN Ruelas in Gastroenterology. The patient I believe has had recurrent problems with bleeding. The patient states she has had a PillCam done and either there was no pathology or there was questionable angiodysplasia in the upper portion. Recommendations were that if she bleeds again she have a deep enteroscopy. She has presented to the hospital with significant anemia and is getting a blood transfusion. I believe she also gets IV iron supplements from time to time. With the, I believe oral iron that she takes the stool is dark; however, her description does not sound like melena. Endoscopy is indicated because of the anemia and the belief that she is bleeding from the upper gastrointestinal tract. INFORMED CONSENT: The procedure was reviewed with the patient. The patient had no further questions and accepts the risks and benefits thereof. One of the risks that were discussed included . Additional risks that were also discussed included bleeding, reaction to medication, possible perforation and possible need for surgery. IV MEDICATIONS USED: Versed 2 and propofol 100. FINDINGS: ESOPHAGUS: Proximal, mid and distal esophagus appeared normal. EG junction was at 45 cm. STOMACH: Cardia, fundus and body normal. Antrum: There were several tiny questionable angiodysplasia. Occasionally, there would be bleeding with trauma. These were treated with cautery. No biopsies were obtained. PYLORUS: Normal. DUODENUM: This appeared normal. As there was no definitive bleeding site found the EGD scope was taken out and the colonoscope was advanced to the hob which is 165 cm. No abnormalities were found in the jejunum. The papilla appeared satisfactory. Once again, no angiodysplasia or other bleeding sites were found in the visualized portion of the jejunum. RECOMMENDATIONS: I believe it would be worthwhile to seriously consider having the patient see Dr. Guadarrama in [place] for deep enteroscopy, single or double balloon enteroscopy. If for some reason the patient has not had a PillCam study done this may be helpful but she stated she has had one done. CRD:[id number] Job ID: [id number] Doc ID: [id number] Ross Walls MD
[2016-04-18] MEDS: ALLOPURINOL 300 MG TABLET PO SCH (09:30)
[2016-04-18] MEDS: MAGNESIUM OXIDE 400 MG TABLET PO SCH (09:30)
[2016-04-18] MEDS: DIGOXIN 125 MCG TABLET PO SCH (14:37)
--- NOTE | 2016-04-18 15:47 | Discharge Summary ---
Medical - DS: Prov Patient information: Note initiated : 04/18/16 at 3:38 pm Service Date, if different from initiated Date: [] Patient: Kenia Davis 80 y/o F admitted on 04/15/16 for Severe Anemia. Chief Complaint: [] Date of admission: 04/15/16 18:22 Discharge date: 04/18/16 Primary care physician: Dr. Luisito Walls] Admitting clinician: Merrill Howard Consults: 04/15/16 19:47 Consult to Physician [CONS] Routine Comment: Consulting Provider: Ross Terry Reason For Exam: Physician to Consult Attending physician on discharge: Viviane Moseley Medical - DS: Meds - Discharge Medications Prescriptions: Exenatide [Byetta] 10 mcg SQ DAILY #1 pen.injctr Active and Home Medications: Active Medications Acetaminophen (Tylenol) 650 mg PO Q6HP PRN PRN Reason: PAIN/FEVER > 101 Albuterol/Ipratropium (Duoneb) 3 ml NEB Q6HRT [facility] Last Admin: 04/18/16 13:52 Dose: 3 ml Allopurinol (Zylopriim) 300 mg PO DAILY [facility] Last Admin: 04/18/16 09:30 Dose: 300 mg Dextrose (Dextrose 50%) 0 ml IV UD PRN PRN Reason: Hypoglycemia Diagnostic Test (Pha) (Accu-Chek) 1 each FS ACHS [facility] Last Admin: 04/18/16 12:01 Dose: 1 each Digoxin (Lanoxin) 62.5 mcg PO DAILY@1400 [facility] Last Admin: 04/18/16 14:37 Dose: 62.5 mcg Furosemide (Lasix) 40 mg IV BIDD [facility] Last Admin: 04/18/16 08:02 Dose: 40 mg Insulin Glargine (Lantus) 40 unit SQ HS [facility] Last Admin: 04/17/16 21:47 Dose: 40 unit Insulin Human Lispro (Humalog) 0 unit SQ ACHS [facility] PRN Reason: Protocol Last Admin: 04/18/16 12:01 Dose: 6 unit Levothyroxine Sodium (Synthroid) 100 mcg PO ACB [facility] Last Admin: 04/18/16 08:02 Dose: 100 mcg Levothyroxine Sodium (Synthroid) 150 mcg PO QAMAC [facility] Last Admin: 04/18/16 08:01 Dose: 150 mcg Magnesium Oxide (Magnesium Oxide) 400 mg PO BID [facility] Last Admin: 04/18/16 09:30 Dose: 400 mg Misoprostol (Cytotec) 100 mcg PO BIDCC [facility] Last Admin: 04/18/16 08:01 Dose: 100 mcg Naloxone HCl (Narcan) 0.1 mg IV Q2MIN PRN PRN Reason: Opiate Reversal Ondansetron HCl (Zofran) 4 mg IV Q4HP PRN PRN Reason: Nausea And Vomiting Pantoprazole Sodium (Protonix) 40 mg IV BIDAC [facility] Last Admin: 04/18/16 08:02 Dose: 40 mg Potassium Chloride (Potassium Chloride) 15 meq PO BIDCC [facility] Last Admin: 04/18/16 08:00 Dose: 15 meq Simvastatin (Zocor) 20 mg PO HS [facility] Last Admin: 04/17/16 21:46 Dose: 20 mg Medical - DS: Hosp Hospital course: Mrs. Davis is a 80 year old he female, who is admitted on April 15, 2016, with severe anemia, thought secondary to a GI bleed. he has a known history of angiodysplasia, although often the source of her bleeding cannot be located. She did undergo upper endoscopy with GI, but no definite bleeding source was found. GI recommends that the patient be sent to [facility] for endoscopy with push enteroscopy .The patient was transfused to hemoglobin above 8, and this has remained fairly stable for the last 2 days now. she has been notedto be hypoxic here, especially with ambulation on room air.the patient reported to me that she did not know of any history of lung problems, but her chart does indicate that she has a history of significant CHF and pulmonary hypertension. She also has known sleep apnea, but has not been using her CPAP. She believes she misplaced it. Since her hemoglobin was stable this afternoon, I suggested that she could go home, and continue her workup as an outpatient. Initially she resisted, saying her wasn't going to be home much. However she did locate him later and after talking with social work, she decided she would like to go home today. she does believe that she is less short of breath and less fatigued today. She otherwise is not having fever or chills, chest pain or abdominal pain. She denies significant cough. on exam, she is a well-developed well-nourished overweight female in no acute distress, but at times seems a bit forgetful. Neck is supple without obvious JVD. Cardiac exam shows an irregularly irregular rhythm. Lungs are clear to auscultation. Abdomen is soft and nontender, with normal bowel sounds. Extremities: Show some minor chronic woody edema. She is wearing support stockings. assessment and plan: #1. GI. The patient is doing well, no acute bleed, but her hemoglobin is still on the low end, she came in with 6.2, and after 4 units she is only at 8.0, no active bleed noted, she is s/p endoscopy. -GI suggests that the patient will need push enteroscopy as outpatient. Anemia: Monitor h/h transfuse to keep hb > 8.0. on IV ppi, and misopristol #2.Atrial Fib: On Coumadin with therapeutic INR, the patient is in a difficult position. because of her bleeding, Coumadin was held. The plan was to add aspirin, once her INR was less than 2.0, although it has remained relatively high. The patient should continue to hold her Coumadin until she follows up with either her primary care physician or her gis technician, to further review risk and benefits of anticoagulation. did some risk calculations, and it looks like her risk of stroke and her risk of serious GI bleeding are somewhere around 10%,if she does not versus if she does use anticoagulation. The patient again should talk with her gis technician regarding an evaluation for watchman device #3.CHF/ Cor pulmonale: -the patient diuresed approximately 7 L during her stay here, and this probably helped her shortness of breath significantly.creatinine did bump to 1.8, but is down to 1.5 today. She will resume her home diuretic regimen, and will need that followed up as well. It seems she is fluid overloaded predominantly from right heart failure. -Severe pulmonary HTN on the Echo, diuresis should help, she has type 2 and type 3 mixed picture. Compliace with cpap will help. -the patient did request a new CPAP machine, since she is not sure that she can find her old one. Respiratory therapy encouraged her to try looking for the old one, and if she cannot find it, to contact the company that she got it from. #4.DVT on coumadin with therapeutic INR.this will need to be followed up, now that she is off Coumadin. #5. Type 2 diabetes.Diet Diabetic diet.resume usual medications. 36. Disposition: the patient appears stable for discharge, but is still having issues with weakness and hypoxia and dyspnea with exertion. Home oxygen has been ordered. Home health has been requested, for an RN to check a follow-up CBC in follow-up oxygen saturations, and also physical therapy to see if they need to work with her further at home, to decrease her risk of falls. -She needs to follow up with her primary care physician about treatment for her sleep apnea, and is again advised that treating this will help prevent her cardiopulmonary symptoms from getting worse more quickly. Discharge diagnosis: #1 GI bleed of uncertain etiology. #2 CHF exacerbation. Secondary discharge diagnosis: #3 room air hypoxia due to CHF and pulmonary hypertension. - Time Spent with Patient Total time spent providing and/or coordinating discharge services: Greater than 30 minutes (pproximately 45 minutes was spent today, reviewing the patient's chest results,meeting with her and examining her, checking follow-up labs, and in reviewing her case with respiratory therapy and social work, and terms of discharge planning.) Medical - DS: Exam - Constitutional Vitals: Vital Signs Temp Pulse Pulse Resp BP Pulse Ox 04/18/16 13:52 66 16 04/18/16 12:00 97.7 F 83 18 157/60 93 04/18/16 08:00 97.7 F 83 18 158/63 94 04/18/16 07:42 66 16 96 04/18/16 07:37 66 16 04/18/16 06:07 65 04/18/16 04:16 98.4 F 72 20 126/49 96 04/18/16 02:00 66 04/18/16 00:00 98.8 F 69 18 138/47 96 04/17/16 20:00 98.3 F 71 20 133/51 95 04/17/16 19:28 66 14 94 04/17/16 19:15 18 94 Intake and Output 04/18/16 04/18/16 04/18/16 05:59 13:59 21:59 Intake Total 150 / 150 360 / 360 120 / 120 Output Total 625 / 625 1500 / 1500 Balance -475 / -475 360 / 360 -1380 / -1380 Intake: Oral 150 / 150 360 / 360 120 / 120 Output: Urine Catheter Amount 625 / 625 1500 / 1500 Other: Meal Breakfast Lunch Percent of Meal Consumed 100% 100% Feeding Ability Independent Independent Medical - DS: Data Labs on day of discharge: Labs from last 24 hours 04/18/16 04/18/16 04/18/16 12:35 04:00 04:00 WBC RBC Hgb 8.3 L Hct 26.6 L MCV MCH MCHC RDW Plt Count MPV Gran % Lymph % (Auto) [place] % (Auto) Eos % (Auto) Baso % (Auto) Gran # Lymph # Mellette # Eos # Baso # PT 23.1 H INR 2.0 H Sodium 140 Potassium 4.2 Chloride 96 Carbon Dioxide 32 H Anion Gap 12.0 BUN 64 H Creatinine 1.5 H GFR Calculation 33 Glucose 179 H Uric Acid 5.9 Calcium 8.7 Phosphorus 4.0 Magnesium 2.7 H Total Bilirubin 0.6 Direct Bilirubin < 0.2 GGT 49 H AST 16 ALT 18 Alkaline Phosphatase 95 Lactate Dehydrogenase 205 Total Protein 6.4 Albumin 3.6 Globulin 2.8 Albumin/Globulin Ratio 1.3 Triglycerides 61 04/18/16 04/17/16 04:00 18:00 WBC 7.1 RBC 2.86 L Hgb 8.0 L 8.3 L Hct 25.6 L 26.0 L MCV 89.5 MCH 28.0 MCHC 31.3 RDW 20.4 H Plt Count 174 MPV 7.8 Gran % 84.1 H Lymph % (Auto) 4.0 L Mellette % (Auto) 7.2 Eos % (Auto) 4.5 Baso % (Auto) 0.2 Gran # 6.0 Lymph # 0.3 L Mellette # 0.5 Eos # 0.3 Baso # 0 PT INR Sodium Potassium Chloride Carbon Dioxide Anion Gap BUN Creatinine GFR Calculation Glucose Uric Acid Calcium Phosphorus Magnesium Total Bilirubin Direct Bilirubin GGT AST ALT Alkaline Phosphatase Lactate Dehydrogenase Total Protein Albumin Globulin Albumin/Globulin Ratio Triglycerides EGD foundquestionable angiodysplasia of the stomach, with no certain GI bleeding source. EKG on admission showed atrial fibrillation with a rate of 68, with possible previous septal [place].here was some minor ST sagging noted inferiorly. chest x-ray from April 15, 2016, showed markedly cardiac enlargement, with markedly pulmonary vascular congestion. Small bilateral pleural effusions were also noted. Medical - DS: A/P - Patient/Caregiver Discharge Instructions Activity: as per physical therapy, increase activity as tolerated, wear oxygen at all times Diet: Cardiac, Consistent Carbohydrate Additional Instructions: #1. We have prescribed home oxygen, as her oxygen saturations were running quite low here. This appears to be due to a combination of your heart failure as well as pulmonary hypertension. in general, you should wear oxygen 1-2 L at rest, and 2-3 L with exertion. She should follow up with your primary care physician, and also possibly either a lung specialist or a family reunification specialist, to further look into the cause of your hypoxia. #2. Your hematocrit has been stable for the last day or so. You need to follow- up with in [place] for a deep enteroscopy study, to look into the cause of your bleeding. #3. Because of your anemia, your Coumadin has been placed on hold. you were started on a baby aspirin every day instead. He will need to follow up with her primary care physician and/or your gis technician, to again review the risk versus benefit of Coumadin to prevent stroke, versus having a severe GI bleed. - he should also have your hematocrit and oxygen levels rechecked tomorrow or the next day, either by home health, or new primary care physician. -We have referred you for home health evaluation for both nursing to follow up on your oxygen levels, congestive heart failure and GI bleeding, and also to recheck your oxygen levels and hematocrit. #4 . Please resume using your CPAP at night as this helps to manage her sleep apnea, and helps prevent your pulmonary hypertension from getting worse. Prescriptions: Exenatide [Byetta] 10 mcg SQ DAILY #1 pen.injctr Other Amb Orders: Home Oxygen Order Location: Determined By Patient Basic Metabolic Panel Time Frame: 1 Day, Location: Determined By Patient Complete Blood Count Time Frame: 1 Day, Location: Determined By Patient - Follow up Plan Disposition: Home Health Service Prognosis: Good Rehab Potential: Good Overall status at discharge: patient is progressing back to baseline
== END 2016-04-18 16:55 | disposition home health service (06) | DRG 378 ==
LOC: ICU 18:22 → SUATTDRO 18:22
PROVIDERS: ADMIT Internal Medicine; ATTEND Internal Medicine

== ENCOUNTER 2017-01-31 19:12 | Observation (INO) ==
--- NOTE | 2017-01-31 19:26 | Emergency Department Note ---
General Adult HPI - General Chief complaint: Bleeding Other Stated complaint: low h&h, sent by Dr. Shanks Time Seen by Provider: 01/31/17 19:19 Source: patient, family Mode of arrival: wheelchair Limitations: no limitations - History of Present Illness HPI Narrative: 81-year-old female referred over by Dr. Shanks earlier around 1:00 PM but patient did not show up tell 730pm she states she was out shopping patient did receive 2 units of packed RBCs 1 month ago hemoglobin is dropped to 5.[address] shanks requested that we give her some blood. He recently had reactive rest during 1 of the GI procedures 3 months ago she is going to have any more GI workups. Had in the past a history of some angiodysplastic Lesions. Been on Coumadin for atrial fibrillation but it was popped and she was put on 81 mg aspirin due to the fact she has had these multiple bleeds. Patient denies any black stools and complaining of weakness patient is pale. She is on chronic O2 severe cor pulmonale. Is any chest pain has the chronic shortness of breath - Related Data Home Medications Medication Instructions Recorded Confirmed Vitamin B Complex 1 cap PO HS 09/24/14 01/31/17 sennosides 8.6 mg tablet 8.6 mg PO QDAY PRN 08/07/15 01/31/17 ascorbic acid (vitamin C) 500 mg 500 mg PO DAILY tab 12/29/15 01/31/17 tablet oxygen at 2L 2 ml IN DAILY 05/27/16 01/31/17 Aspirin [Lo-Dose Aspirin EC] 81 mg PO DAILY 12/23/16 01/31/17 Insulin Glargine, Human [Lantus] 50 unit SUB-Q BID 01/31/17 01/31/17 Previous Rx's Medication Instructions Recorded clobetasol 0.05 % topical cream 1 applic TOPICAL BID PRN 14 Days 02/13/15 #60 g albuterol sulfate HFA 90 180 mcg INHALATION TID PRN #8.5 g 04/14/16 mcg/actuation aerosol inhaler Accu-Chek 1 each FS ACHS strip 04/18/16 atorvastatin 40 mg tablet 40 mg PO QDAY #90 tab 05/20/16 famotidine 20 mg tablet 20 mg PO QDAY #90 tab 06/16/16 potassium chloride ER 20 mEq 20 meq PO QDAY #90 tab 06/16/16 tablet,extended release torsemide 20 mg tablet 20 mg PO TID #270 tab 11/11/16 levothyroxine 200 mcg tablet 200 mcg PO QDAY #90 tab 12/13/16 Allergies Allergy/AdvReac Type Severity Reaction Status Date / Time propofol Allergy Severe Anaphylaxis Verified 01/03/17 13:31 quinidine Allergy Intermediate Palpitation Verified 01/03/17 13:31 s hydrocodone AdvReac Mild Itching Verified 01/03/17 13:31 Review of Systems All systems ED: reviewed and negative except as stated. Constitutional: Denies: fever, chills Eyes: Denies: eye pain ENT ED: Denies: ear pain Cardiovascular: Denies: chest pain, palpitations Respiratory: Denies: cough Gastrointestinal: Reports: vomiting. Denies: abdominal pain, nausea, diarrhea, constipation, hematochezia, melena, hematemesis Genitourinary: Denies: urgency, dysuria, frequency Musculoskeletal: Denies: back pain Integumentary: Denies: rash, lesions Neurological: Denies: headache, weakness Psychiatric: Denies: anxiety, depression Endocrine: Denies: fatigue Hematological/Lymphatic: Reports: as per HPI. Denies: easy bleeding Allergic/Immunologic: Denies: facial swelling Past Medical History - Past Medical History Medical history: Reports: arthritis, atrial fibrillation, CHF (cor pulmonale from pulmonary hypertension), CVA, diabetes, GI bleed, hyperlipidemia, hypertension, osteoporosis, peripheral artery disease, renal disease (stage III) , thyroid disease, valvular heart disease (Mitral valve insufficiency and aortic valve stenosis), other (lupus, clotting disorder, PVD, lower extremity edema, gout) Surgical history ED: Reports: cataract, cholecystectomy, hysterectomy, knee replacement, orthopedic, other (left shoulder) Family history: Reports: diabetes, other (father prostate ca, mother cardiac) - Social History smoking status: Never smoker Alcohol use: Reports: None Drug use: Reports: none Physical Exam Limitations: no limitations General appearance: other (pale) Head: atraumatic, normocephalic Eye: Present: normal appearance, PERRL ENT: normal exam, normal oropharynx, mucous membranes moist Neck: Present: normal inspection, full ROM Chest: Present: normal inspection, symmetric chest wall rise Respiratory: Present: normal lung sounds bilaterally. Absent: respiratory distress Cardiovascular: Present: regular rate, irregular rhythm. Absent: bradycardia, tachycardia Abdominal: Present: soft. Absent: distention, tenderness, guarding, rebound Rectal: Present: normal inspection, normal rectal tone, heme (+) stool Extremities: Present: normal inspection, full ROM Back: Present: normal inspection, full ROM. Absent: tenderness Neurological: Present: alert, oriented X3, CN II-XII intact Psychiatric: Present: normal affect, normal mood Skin: Present: warm, dry Course Vital Signs Temperature 98.2 F 01/31/17 19:13 Pulse Rate 100 H 01/31/17 19:13 Respiratory Rate 20 01/31/17 19:13 Blood Pressure 155/70 01/31/17 19:13 Pulse Oximetry (%) 94 01/31/17 19:13 Temperature 98.2 F 01/31/17 19:13 Pulse Rate 100 H 01/31/17 19:13 Respiratory Rate 20 01/31/17 19:13 Blood Pressure 155/70 01/31/17 19:13 Pulse Oximetry (%) 94 01/31/17 19:13 Medical Decision Making - MDM Narrative Medical decision making narrative: chest xray show cardiomegally, with some chf. hb 5.4 hct 17. 3 u pack rbc is being c and t, she does have antibodies Dr payan called and pt admitted to telemetry. stols were guiac positive - Lab Data Result diagrams: 01/31/17 19:41 01/31/17 19:41 Lab Results 01/31/17 01/31/17 01/31/17 Range/Units 19:41 19:41 19:41 WBC 7.2 (4.5-11.0) K/mcL RBC 2.09 L (4.00-5.20) M/mcL Hgb 5.4 L* (12.0-15.0) g/dL Hct 17.1 L* (36.0-48.0) % POC Hct 17.0 L* (36.0-48.0) % MCV 81.9 (80.0-100.0) fL MCH 26.1 (26.0-34.0) pg MCHC 31.8 (31.0-36.0) g/dL RDW 20.8 H (11.5-14.5) % Plt Count 183 (140-440) K/mcL MPV 7.7 (7.4-10.4) fL Gran % 86.4 H (38.0-78.0) % Lymph % (Auto) 4.1 L (15.5-49.0) % Kern % (Auto) 5.0 (1.0-12.0) % Eos % (Auto) 4.1 (0.0-7.0) % Baso % (Auto) 0.4 (0.0-2.0) % Gran # 6.2 (1.8-8.0) K/mcL Lymph # (Auto) 0.3 L (1.5-4.8) K/mcL Kern # (Auto) 0.4 (0.1-0.9) K/mcL Eos # (Auto) 0.3 (0.0-0.7) K/mcL Baso # (Auto) 0 (0.0-0.3) K/mcL POC PT 14.2 (11.9-14.5) sec POC INR 1.2 (0.9-1.2) POC Sodium 142 (133-145) mmol/L POC Potassium 3.9 (3.3-5.1) mmol/L POC Chloride 98 (96-108) mmol/L POC Total CO2 31 H (22-30) mmol/L POC BUN 74 H (8-23) mg/dl POC Creatinine 2.5 H (0.6-1.1) mg/dl POC Glucose 169 H (70-105) mg/dL POC WB Ioniz Calcium 1.01 L (1.16-1.32) mmol/L Disposition Pt seen by DIRECTOR OF ESTATE/PA only: No Clinical Impression: Severe anemia Disposition: Xfer As Inpt ([facility]) Condition: Fair Referrals: Luisito Shanks MD [Primary Care Provider] - Time of Disposition: 20:38
[2017-01-31] MEDS ORDERED: 0.9 % SODIUM CHLORIDE 250 ML IV SCH ×2 (19:30→21:35)
[2017-01-31 20:22] LABS: Basophils # (Auto) 0 K/mcL (0.0-0.3); Basophils % (Auto) 0.4 % (0.0-2.0); Eosinophils # (Auto) 0.3 K/mcL (0.0-0.7); Eosinophils % (Auto) 4.1 % (0.0-7.0); Granulocytes % (Auto) 86.4 % (38.0-78.0); Lymphocytes # (Auto) 0.3 K/mcL (1.5-4.8); Lymphocytes % (Auto) 4.1 % (15.5-49.0); Mean Cell Volume 81.9 fL (80.0-100.0); Mean Corpuscular HGB Conc 31.8 g/dL (31.0-36.0); Mean Corpuscular Hemoglobin 26.1 pg (26.0-34.0); Monocytes # (Auto) 0.4 K/mcL (0.1-0.9); Platelet Count 183 K/mcL (140-440); RBC 2.09 M/mcL (4.00-5.20); Red Cell Distribution Width 20.8 % (11.5-14.5)
[2017-01-31 20:41] LABS: ALT/SGPT 16 U/l (0-40); Albumin 3.8 gm/dL (3.2-5.2); Albumin/Globulin Ratio 1.4 (1.0-2.3); Alkaline Phosphatase 84 U/L (39-117); Blood Urea Nitrogen 71 mg/dl (8-23)
[2017-01-31] MEDS ORDERED: FUROSEMIDE 40 MG/4 ML VIAL IV ONE ×2 (20:43→21:35)
[2017-01-31] MEDS ORDERED: FUROSEMIDE 20 MG/2 ML VIAL IV SCH (21:00)
[2017-01-31] MEDS ORDERED: SENNOSIDES 1 TABLET PO PRN (21:35)
[2017-01-31] MEDS ORDERED: oxyCODONE/APAP 5/325MG TABLET PO PRN (21:35)
[2017-01-31] MEDS ORDERED: MAGNESIUM HYDROXIDE 30 ML ORAL.SUSP PO PRN (21:35)
[2017-01-31] MEDS ORDERED: ACETAMINOPHEN 325 MG TABLET PO PRN (21:35)
[2017-01-31] MEDS ORDERED: ONDANSETRON 4 MG/2 ML VIAL IV PRN (21:35)
[2017-01-31] MEDS ORDERED: VITAMIN B COMPLEX 1 CAPSULE PO SCH (21:35)
[2017-01-31] MEDS ORDERED: NALOXONE HCL 0.4 MG/ML VIAL IV PRN (21:35)
[2017-01-31] MEDS ORDERED: PANTOPRAZOLE 40 MG VIAL IV ONE (21:41)
[2017-01-31] MEDS ORDERED: DEXTROSE 31 GM ORAL.SUSP PO PRN (21:49)
[2017-01-31] MEDS ORDERED: DEXTROSE 50% 50 ML VIAL IV PRN (21:49)
[2017-01-31] MEDS: ALBUTEROL SULFATE 1 PUFF INHALER INH SCH (22:00)
--- NOTE | 2017-01-31 22:05 | Internal Med History&Physical ---
Medical - H&P: HPI Patient information: Note initiated : 01/31/17 at 10:02 pm Service Date, if different from initiated Date: [] Patient: Kenia Davis a 81 y/o F admitted on 01/31/17 for low h&h, sent by Dr. Walls. Chief Complaint: [] History of present illness: Ms. 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 She needs chr blood transfusions for these issues. her last transfusion was last month, 2-3 weeks ago, 2 units, and she was having her blood checked again, her hb was noted to be low at 5.6, and she was advised to come in for blood transfusion. ER repeated hb which showed hb of 5.4, she denies any overt bleed, no stevan. The patient has significant antibodies to repeated transfusions and blood bank is taking some time to get the blood. Given her extensive cardiac history, including h/o cardiac arrest while getting an endoscopy the patient is admitted to the hospital for blood transfusions. She refuses furtehr interventions from GI prospective. She desires to be full code. Besides some fatigue, she feels at baseline and denies any complaints. All systems: reviewed and no additional remarkable complaints except as stated ( as per hpi) Medical - H&P: [facility] Medical history: Medical History (Last Reviewed 01/03/17 @ 14:21 by Luisito Walls MD) Severe anemia (Acute) Reticulocytosis (Chronic) Breast pain, right (Chronic) Cor pulmonale (Chronic) Anemia (Chronic) Acute cor pulmonale (Chronic) Moderate to severe pulmonary hypertension (Chronic) Upper GI hemorrhage (Chronic) UTI (urinary tract infection) (Resolved) Anemia (Chronic) Myocardial infarction (Acute) Diastolic heart failure (Acute) Renal failure (ARF), acute on chronic (Acute) GI bleed (Chronic) Acute blood loss anemia (Resolved) Cardiac arrest during or resulting from a procedure (Resolved) Hypoxia (Chronic) Pulmonary hypertension (Chronic) Shortness of breath (Chronic) Edema of lower extremity (Chronic) CKD (chronic kidney disease) stage 3, GFR 30-59 ml/min (Chronic) Encounter for wound care (Chronic) Lower extremity edema (Chronic) Infected abrasion of left leg (Resolved) Metabolic Syndrome X (Chronic) Chronic kidney disease, stage III (moderate) (Chronic) Atrial fibrillation (Chronic) Chronic kidney disease, stage III (moderate) (Chronic) Urinary tract infection (Chronic) Mitral valve insufficiency (Chronic) Aortic valve stenosis (Chronic) Rectal Hemorrhage (Resolved) Type 2 diabetes mellitus (Chronic) Hypothyroidism (Chronic) Hypertension (Chronic) Vitreous degeneration (Chronic) Venous insufficiency (Chronic 02/17/14) Peripheral vascular disease (Chronic 02/17/14) 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 joint disease of right knee (Chronic) Congestive heart failure (Chronic) Colon adenoma (Chronic) Chronic kidney disease (Chronic) Bronchitis (Chronic) Chronic atrial fibrillation (Chronic) Ankle sprain (Chronic 11/08/12) Angiodysplasia (Chronic) Anemia (Chronic) Surgical history: Past Surgical History (Last Reviewed 01/03/17 @ 14:21 by Luisito Walls MD) History of toe surgery (Resolved) History of shoulder surgery (Resolved) Status post right knee replacement (Resolved) History of left knee replacement (Resolved) History of hysterectomy (Resolved) History of esophagogastroduodenoscopy (Resolved) History of colonoscopy (Resolved) History of cholecystectomy (Resolved) History of cataract surgery (Resolved) History of breast surgery (Resolved) Pseudophakia (Resolved) Pertinent family history: Family History (Last Reviewed 01/03/17 @ 14:21 by Luisito Walls MD) Father Rheumatoid arthritis Family history of malignant neoplasm Malignant neoplasm of prostate Mother Cardiac disease Unknown Diabetes mellitus Medical - H&P: Meds Home Medications Medication Instructions Recorded Confirmed Type Vitamin B Complex 1 cap PO HS 09/24/14 01/31/17 History clobetasol 0.05 % topical cream 1 applic TOPICAL BID PRN 14 Days 02/13/15 Rx #60 g sennosides 8.6 mg tablet 8.6 mg PO QDAY PRN 08/07/15 01/31/17 History ascorbic acid (vitamin C) 500 mg 500 mg PO DAILY tab 12/29/15 01/31/17 History tablet albuterol sulfate HFA 90 180 mcg INHALATION TID PRN #8.5 g 04/14/16 01/31/17 Rx mcg/actuation aerosol inhaler Accu-Chek 1 each FS ACHS strip 04/18/16 01/31/17 Rx atorvastatin 40 mg tablet 40 mg PO QDAY #90 tab 05/20/16 01/31/17 Rx oxygen at 2L 2 ml IN DAILY 05/27/16 01/31/17 History famotidine 20 mg tablet 20 mg PO QDAY #90 tab 06/16/16 01/31/17 Rx potassium chloride ER 20 mEq 20 meq PO QDAY #90 tab 06/16/16 01/31/17 Rx tablet,extended release torsemide 20 mg tablet 20 mg PO TID #270 tab 11/11/16 01/31/17 Rx levothyroxine 200 mcg tablet 200 mcg PO QDAY #90 tab 12/13/16 01/31/17 Rx Aspirin [Lo-Dose Aspirin EC] 81 mg PO DAILY 12/23/16 01/31/17 History Insulin Glargine, Human [Lantus] 50 unit SUB-Q BID 01/31/17 01/31/17 History Allergies Allergy/AdvReac Type Severity Reaction Status Date / Time propofol Allergy Severe Anaphylaxis Verified 01/03/17 13:31 quinidine Allergy Intermediate Palpitation Verified 01/03/17 13:31 s hydrocodone AdvReac Mild Itching Verified 01/03/17 13:31 Medical - H&P: Exam - Constitutional Vitals: Temp Pulse Resp BP Pulse Ox 97.7 F 53 L 24 H 149/97 93 01/31/17 21:35 01/31/17 21:35 01/31/17 21:35 01/31/17 21:35 01/31/17 21:35 Medical - H&P: Reslt - Labs CBC & Chem 7: 01/31/17 19:41 01/31/17 19:41 Labs: Short CBC 01/31/17 Range/Units 19:41 WBC 7.2 (4.5-11.0) K/mcL Hgb 5.4 L* (12.0-15.0) g/dL Hct 17.1 L* (36.0-48.0) % Plt Count 183 (140-440) K/mcL BMP 01/31/17 19:41 Sodium 141 Potassium 4.1 Chloride 96 Carbon Dioxide 28 BUN 71 H Creatinine 2.3 H Glucose 173 H Calcium 8.8 Liver Function 01/31/17 Range/Units 19:41 Total Bilirubin 0.4 (0.0-1.0) mg/dL AST 16 (0-37) U/l ALT 16 (0-40) U/l Alkaline Phosphatase 84 (39-117) U/L Albumin 3.8 (3.2-5.2) gm/dL Medical - H&P: A/P - Narrative A/P Narrative: A/P Acute blood loss anemia Angiodysplasia of GI tract afib chf cor pulmonale Chronic Kidney Disease chr respiratory failure, on 2L oxygen Dialted cardiomyopathy DM Plan Admit to tele for obs IV lasix 40mg now, Transfuse 3 units prbc, 20 mg lasix after each transfusion to avoid fluid overload. Pt declined rasheed and gi workup Patient hopefully will be able t tolerate these transfusions. d/c famotid, give pantoprazole 80mg once now, and start on 40mg iv bid Switch h2 blockers to ppi at discharge pt is no longer taking Coumadin due to high risk of gi bleed resume home meds as tolerated lantus and sliding scale insulin for DM Given that she is not a candidate for GI interventions, and recurrent bleeding necessitating repeated transfusions is causing significant of antibodies, not to mention her overall poor cardiovascular function means she is unable to tolerate low hb well (very poor functional status, ET of bed to bathroom) the patient could be considered for novel treatment options. Reviewing uptodate , there have been some success using octreotide in this patient group, alternatively thalidomide has also shown some benefit. Not sure if the insurance will cover these treatments but it may well be worth a try given that she has significant bleeding issues needing repeated transfusions. The patient has poor creat at 2.5, baseline has been gradually worsening, not being followed by nephrology, not sure if epogen will help in this case, but I think it might. Uremia causes platelets dysfunction, which makes bleeding worse. hopefully the patient will follow up with nephrology as outpatient for further evaluation. Social History - Social History household members: spouse housing: house lives independently: Yes marital status: education level: high school - Tobacco smoking status: Never smoker - Alcohol alcohol intake frequency: does not drink
[2017-02-01] MEDS: FUROSEMIDE 20 MG/2 ML VIAL IV SCH ×2 (00:33→02:52)
--- NOTE | 2017-02-01 06:12 | XRay Report ---
INDICATION: Anemia. Weakness. TECHNIQUE: AP chest x-ray,portable semiupright COMPARISON: Multiple previous chest x-rays including examinations dated 07/25/2016, 07/18/2016, 07/13/2016, 05/30/2016, 04/14/2016 FINDINGS:Previous left reverse shoulder arthroplasty Severe cardiomegaly. This is chronic. Pulmonary vascularity prominent with apical redistribution. Consistent pulmonary congestion. There is bronchial wall thickening. No definite David B lines or focal alveolar infiltrates. Appearance is consistent with pulmonary congestion which is worsened on previous examination. There may be mild interstitial edema as well. No parenchymal mass. No evidence for acute pneumonia. IMPRESSION: 1. Severe cardiomegaly and pulmonary congestion 2. Probable interstitial edema consistent with congestive heart failure Interpreted and Authenticated by: Ray Snow 02/01/17
[2017-02-01] MEDS ORDERED: LEVOTHYROXINE 100 MCG TABLET PO SCH (07:30)
[2017-02-01] MEDS ORDERED: PANTOPRAZOLE 40 MG VIAL IV SCH (07:30)
[2017-02-01] MEDS: INSULIN LISPRO 1 UNIT/0.01 ML UNIT SQ SCH ×2 (07:44→11:39)
[2017-02-01] MEDS ORDERED: POTASSIUM CHLORIDE 20 MEQ TABLET PO SCH (08:00)
[2017-02-01] MEDS: ALBUTEROL SULFATE 1 PUFF INHALER INH SCH (08:48)
[2017-02-01] MEDS ORDERED: TORSEMIDE 10 MG TABLET PO SCH (09:00)
[2017-02-01] MEDS ORDERED: ASCORBIC ACID 500 MG TABLET PO SCH (09:00)
[2017-02-01] MEDS ORDERED: INSULIN GLARGINE, HUMAN 1 UNIT/0.01 ML SQ SCH (09:00)
[2017-02-01] MEDS ORDERED: ATORVASTATIN 20 MG TABLET PO SCH (09:00)
[2017-02-01 09:08] LABS: Basophils # (Auto) 0 K/mcL (0.0-0.3); Basophils % (Auto) 0.4 % (0.0-2.0); Eosinophils # (Auto) 0.3 K/mcL (0.0-0.7); Eosinophils % (Auto) 4.4 % (0.0-7.0); Granulocytes % (Auto) 82.9 % (38.0-78.0); Lymphocytes # (Auto) 0.4 K/mcL (1.5-4.8); Lymphocytes % (Auto) 4.8 % (15.5-49.0); Mean Cell Volume 84.7 fL (80.0-100.0); Mean Corpuscular HGB Conc 32.5 g/dL (31.0-36.0); Mean Corpuscular Hemoglobin 27.5 pg (26.0-34.0); Monocytes # (Auto) 0.5 K/mcL (0.1-0.9); Monocytes % (Auto) 7.5 % (1.0-12.0); Platelet Count 185 K/mcL (140-440); RBC 2.81 M/mcL (4.00-5.20)
[2017-02-01 09:19] LABS: ALT/SGPT 17 U/l (0-40); Albumin/Globulin Ratio 1.6 (1.0-2.3); Alkaline Phosphatase 81 U/L (39-117); Blood Urea Nitrogen 70 mg/dl (8-23)
--- NOTE | 2017-02-01 11:44 | Discharge Summary ---
Medical - DS: Prov Patient information: Note initiated : 02/01/17 at 11:40 am Service Date, if different from initiated Date: [] Patient: Kenia Davis 81 y/o F admitted on 01/31/17 for Low H&H, sent by Dr Walls/Severe Anemia. Chief Complaint: [] Date of admission: 01/31/17 21:19 Discharge date: 02/01/17 Primary care physician: Luisito Walls Admitting clinician: Merrill Howard Consults: 01/31/17 20:54 Consult to Physician [CONS] Stat Comment: Consulting Provider: Merrill Howard Reason For Exam: Physician to Consult Discharging clinician: Merrill Howard Medical - DS: Meds - Discharge Medications Prescriptions: Omeprazole [Prilosec] 20 mg PO ACB #60 cap Active and Home Medications: Home Medications Vitamin B Complex 1 cap PO HS 09/24/14 [History Confirmed 01/31/17 Last Taken ] clobetasol 0.05 % topical cream 1 applic TOPICAL BID PRN 14 Days #60 g 02/13/15 [Rx Confirmed 01/31/17 Last Taken 12/23/16] sennosides 8.6 mg tablet 8.6 mg PO QDAY PRN 08/07/15 [History Confirmed Last Taken 12/23/16] ascorbic acid (vitamin C) 500 mg tablet 500 mg PO DAILY tab 12/29/15 [History Confirmed 01/31/17 Last Taken 12/23/16] albuterol sulfate HFA 90 mcg/actuation aerosol inhaler 180 mcg INHALATION TID PRN #8.5 g 04/14/16 [Rx Confirmed 01/31/17 Last Taken 12/23/16] Accu-Chek 1 each FS ACHS strip 04/18/16 [Rx Confirmed 01/31/17 Last Taken 12/23] atorvastatin 40 mg tablet 40 mg PO QDAY #90 tab 05/20/16 [Rx Confirmed 01/31/17 Last Taken 12/23/16] oxygen at 2L 2 ml IN DAILY 05/27/16 [History Confirmed 01/31/17 Last Taken 12/23] famotidine 20 mg tablet 20 mg PO QDAY #90 tab 06/16/16 [Rx Confirmed 01/31/17 Last Taken 12/23/16] potassium chloride ER 20 mEq tablet,extended release 20 meq PO QDAY #90 tab [Rx Confirmed 01/31/17 Last Taken 12/23/16] torsemide 20 mg tablet 20 mg PO TID #270 tab 11/11/16 [Rx Confirmed 01/31/17 Last Taken 12/23/16] levothyroxine 200 mcg tablet 200 mcg PO QDAY #90 tab 12/13/16 [Rx Confirmed 10/10 Last Taken 12/23/16] Aspirin [Lo-Dose Aspirin EC] 81 mg PO DAILY 12/23/16 [History Confirmed Last Taken 12/23/16] Insulin Glargine, Human [Lantus] 50 unit SUB-Q BID 01/31/17 [History Confirmed 01/31/17 Last Taken Unknown] Medical - DS: Hosp Hospital course: Ms. 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 She needs chr blood transfusions for these issues. her last transfusion was last month, 2-3 weeks ago, 2 units, and she was having her blood checked again, her hb was noted to be low at 5.6, and she was advised to come in for blood transfusion. ER repeated hb which showed hb of 5.4, she denies any overt bleed, no stevan. The patient has significant antibodies to repeated transfusions and blood bank is taking some time to get the blood. Given her extensive cardiac history, including h/o cardiac arrest while getting an endoscopy the patient is admitted to the hospital for blood transfusions. She refuses further interventions from GI prospective. The patient was admitted overnight to obs status, she received 3 units of prbc with lasix and she tolerated these well. This AM she feels back to baseline, and feels she is good to go home. Her at bedside is ok with her going home. She feels weak at this time and I will set up home physical therapy for her The patient needs weekly blood checks and transfusions as needed with lasix after each transfusion to avoid fluid overload. The patient may benefit with Epogen therapy to see if this will help with her CKD and marrow response to anemia. Given that she is not a good candidate for Endoscopic procedures, there may be a role for thalidomide or octreotide or perhaps avastin to see if they can help decrease the need for transfusion. I will leave this to the discretion of PCP and her other consultants. I have changed her famotidine to omeprazole, I have made no other changes to her medication regime. She may benefit from weekly blood/ cbc checks going forward. Discharge diagnosis: acute on chr gi bleed, Severe anemia, CHF - Time Spent with Patient Total time spent providing and/or coordinating discharge services: Greater than 30 minutes Medical - DS: Exam - Constitutional Vitals: Vital Signs Temp Pulse Pulse Resp BP BP BP 02/01/17 08:38 70 16 02/01/17 08:20 98.2 F 20 125/72 02/01/17 02:51 98.1 F 72 20 127/76 01/31/17 23:04 01/31/17 22:47 98.2 F 106 H 24 H 129/80 01/31/17 21:35 97.7 F 53 L 24 H 149/97 01/31/17 21:16 74 17 117/71 01/31/17 21:01 84 18 119/70 01/31/17 20:49 92 H 18 122/71 01/31/17 20:30 107 H 19 129/75 01/31/17 19:13 98.2 F 100 H 20 155/70 Pulse Ox 02/01/17 08:38 96 02/01/17 08:20 96 02/01/17 02:51 96 01/31/17 23:04 99 01/31/17 22:47 99 01/31/17 21:35 93 01/31/17 21:16 99 01/31/17 21:01 97 01/31/17 20:49 98 01/31/17 20:30 100 01/31/17 19:13 94 Intake and Output 01/31/17 02/01/17 02/01/17 21:59 05:59 13:59 Intake Total 1359 / 1359 Output Total 900 / 900 Balance 459 / 459 Intake: Oral 450 / 450 Blood Product 909 / 909 Output: Void Amount 900 / 900 Other: Weight 250 lb 8 oz Additional comments: Constitutional; Afebrile, cooperative, alert, not in distress. Eyes- No icterus, , No periorbital swelling Ears- Ext ear normal, hearing normal to conversation. Neck- Midline trachea, supple Respiratory system: Air Entry equal on both sides, No crackles or wheezing, no rhonchi. CVS- Rate rhythm irregular, S1,S2 heard, no gallop, no rub. Abdomen- Soft nontender abdomen, no organomegaly, no tenderness, no guarding or rigidity, DIRECTOR SALES- AOOx3, moving all extremities, no gross focal deficit noted. Medical - DS: Data Labs on day of discharge: Labs from last 24 hours 02/01/17 02/01/17 01/31/17 08:40 08:40 19:41 WBC 7.4 RBC 2.81 L Hgb 7.7 L Hct 23.8 L POC Hct 17.0 L* MCV 84.7 MCH 27.5 MCHC 32.5 RDW 19.0 H Plt Count 185 MPV 7.7 Gran % 82.9 H Lymph % (Auto) 4.8 L [place] % (Auto) 7.5 Eos % (Auto) 4.4 Baso % (Auto) 0.4 Gran # 6.1 Lymph # (Auto) 0.4 L [place] # (Auto) 0.5 Eos # (Auto) 0.3 Baso # (Auto) 0 POC PT PT POC INR INR POC Sodium 142 Sodium 141 141 POC Potassium 3.9 Potassium 3.8 4.1 POC Chloride 98 Chloride 96 96 Carbon Dioxide 31 H 28 POC Total CO2 31 H Anion Gap 14.0 17.0 H POC BUN 74 H BUN 70 H 71 H Creatinine 2.3 H 2.3 H POC Creatinine 2.5 H GFR Calculation 20 20 Glucose 171 H 173 H POC Glucose 169 H Calcium 8.8 8.8 POC WB Ioniz Calcium 1.01 L Total Bilirubin 1.6 H 0.4 AST 20 16 ALT 17 16 Alkaline Phosphatase 81 84 Total Protein 6.5 6.6 Albumin 4.0 3.8 Globulin 2.5 2.8 Albumin/Globulin Ratio 1.6 1.4 01/31/17 01/31/17 19:41 19:41 WBC 7.2 RBC 2.09 L Hgb 5.4 L* Hct 17.1 L* POC Hct MCV 81.9 MCH 26.1 MCHC 31.8 RDW 20.8 H Plt Count 183 MPV 7.7 Gran % 86.4 H Lymph % (Auto) 4.1 L [place] % (Auto) 5.0 Eos % (Auto) 4.1 Baso % (Auto) 0.4 Gran # 6.2 Lymph # (Auto) 0.3 L [place] # (Auto) 0.4 Eos # (Auto) 0.3 Baso # (Auto) 0 POC PT 14.2 PT 14.6 H POC INR 1.2 INR 1.1 POC Sodium Sodium POC Potassium Potassium POC Chloride Chloride Carbon Dioxide POC Total CO2 Anion Gap POC BUN BUN Creatinine POC Creatinine GFR Calculation Glucose POC Glucose Calcium POC WB Ioniz Calcium Total Bilirubin AST ALT Alkaline Phosphatase Total Protein Albumin Globulin Albumin/Globulin Ratio Medical - DS: A/P - Patient/Caregiver Discharge Instructions Activity: increase activity as tolerated Diet: Cardiac Additional Instructions: Follow up with PCP in 1 week go to ther ER if any acute or severe bleed, or any other concern. Follow up with [facility] Pharmaceutical Scientist and GI physician as scheduled FOllow up with nephrology in 2-4 weeks I have changed your stomach medication from famotidine to omeprazole 20mg bid. 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 - Follow up Plan Disposition: Home Health Service Prognosis: Fair Rehab Potential: Fair I certify that the patient requires SNF services: No Overall status at discharge: patient is progressing back to baseline Medical - DS: Qual - VTE Deep Vein Thrombosis/Pulmonary Embolism Present on Admission: No
== END 2017-02-01 13:10 | disposition home health service (06) ==
LOC: ED 19:12 → MEDSUR 19:12
PROVIDERS: ADMIT Internal Medicine; ATTEND Internal Medicine